=== PATIENT | male | born 1950 ===

== ENCOUNTER 2018-12-02 20:47 | Inpatient (IN) | payer OTHER ==
[~2018-12-02] VITALS: Ht 167.6 cm; Wt 74.8 kg
[2018-12-02 22:44] VITALS: PULSE 77
[2018-12-02 23:06] VITALS: BP 169/85; RESP 18
[2018-12-03] VITALS (10 sets, daily range): BP systolic 110–133; BP diastolic 64–87; PULSE 63–76; RESP 18–22
[2018-12-03] MEDS: SOD CHLORIDE 0.45% 1,000 ML IV SCH ×3 (00:38→16:00)
[2018-12-03] MEDS ORDERED: hydrALAzine 20 MG INJ IV PRN (01:00)
[2018-12-03] MEDS ORDERED: DOCUSATE SODIUM 100 MG CAP PO PRN (01:00)
[2018-12-03] MEDS ORDERED: ACETAMINOPHEN 325 MG TAB PO PRN (01:00)
[2018-12-03] MEDS ORDERED: NACL 0.9% 3 ML SYG IV SCH (01:00)
[2018-12-03] MEDS ORDERED: HYDROCODONE/APAP (5/325) TAB PO PRN (01:00)
[2018-12-03] MEDS ORDERED: morphine 2 MG INJ IV PRN (01:00)
[2018-12-03] MEDS ORDERED: ALBUTEROL/IPRATROPIUM (NEB) 3 ML AMP HHN PRN (01:00)
[2018-12-03] MEDS ORDERED: MAGNESIUM HYDROXIDE 30ML CUP PO PRN (01:00)
[2018-12-03] MEDS ORDERED: ONDANSETRON 4 MG INJ IV PRN (01:00)
[2018-12-03] MEDS ORDERED: LORAZEPAM 2 MG INJ IV PRN (01:00)
[2018-12-03] MEDS ORDERED: NITROGLYCERIN (SL) 0.4 MG TAB SL PRN (01:00)
[2018-12-03] MEDS ORDERED: DEXTROSE 50% 50 ML SYRINGE IV PRN ×2 (01:15)
[2018-12-03] MEDS ORDERED: GLUCOSE GEL 15 GRAM TUBE BUCCAL PRN (01:15)
[2018-12-03] MEDS ORDERED: GLUCAGON 1 MG INJ IM PRN (01:15)
[2018-12-03] MEDS ORDERED: GLUCOSE GEL 15 GRAM TUBE PO PRN ×2 (01:15)
[2018-12-03] MEDS: INSULIN ASPART [NOVOLOG] 3 ML PEN SC SCH ×6 (01:56→21:40)
[2018-12-03] MEDS ORDERED: ACCU-CHEK XX SCH ×2 (02:00→20:00)
--- NOTE | 2018-12-03 03:38 | HP ---
Date/Time of Note Date/Time of Note DATE: 12/03/18 TIME: 03:32 Assessment/Plan VTE Prophylaxis SCD applied (from Ns): No SCD contraindicated: other Pharmacological prophylaxis: heparin Lines/Catheters Urinary Cath still in place: No Assessment/Plan Hospital Course Assessment and plan: 68-year-old male past medical history of hypertension, BPH, positive smoking history, diabetes, high cholesterol, who was transferred from outside hospital due to facial numbness symptoms, along with slurred speech-rule out stroke versus TIA. 1. Facial numbness slurred speech: Again rule out stroke versus TIA. Preliminary work-up negative -Check MRI of the brain, carotid Doppler studies, echocardiogram. Follow-up TSH, A1c, lipid panel -Continue high-dose aspirin, add statin. Do neuro checks and allow for permissive hypertension at this time, get PT, OT, speech therapy consult 2. Diabetes: Follow-up A1c continue sliding scale insulin 3. Hypertension: Again allow for permissive hypertension at this time 4. High cholesterol: Follow-up lipid panel continue statin 5. Smoking history: Counseled on cessation, consider nicotine patch if patient agrees Results 24hrs Laboratory Tests Test 12/03/18 01:01 Bedside Glucose 143 HPI/ROS Admit Date/Time Admit Date/Time Dec 02, 2018 at 22:36 Hx of Present Illness 68-year-old male past medical history of hypertension, BPH, positive smoking history, diabetes, high cholesterol, who was transferred from outside hospital due to facial numbness symptoms, along with slurred speech. According to the transfer paperwork the symptoms occurred 12 hours prior to arrival to the outside hospital and lasted for 3 hours and resolved patient denied chest pain shortness of breath no upper lower GI bleeding no nausea vomiting no fevers or chills or diarrhea constipation. No prior history of any strokes. Patient had a head CT at the outside hospital that did not show any acute findings, chest x- ray was also negative for any acute findings. PMH/Family/Social Past Medical History Medications Current Medications IV Flush (NS 3 ml) 3 ml PER PROTOCOL IV ; Start 12/03/18 at 01:00 Ondansetron HCl (Zofran Inj) 4 mg Q6H PRN IV NAUSEA/VOMITING; Start 12/03/18 at 01:00 Acetaminophen (Tylenol Tab) 650 mg Q6H PRN PO .PAIN 1-3 OR TEMP; Start 12/03/18 at 01:00 Acetaminophen/ Hydrocodone Bitart ([place] (5/325)) 1 tab Q6H PRN PO .MOD PAIN 4- 6; Start 12/03/18 at 01:00 Morphine Sulfate (morphine) 2 mg Q4H PRN IV .SEVERE PAIN 7-10; Start 12/03/18 at 01:00 Docusate Sodium (Colace) 100 mg Q12H PRN PO .CONSTIPATION; Start 12/03/18 at 01:00 Magnesium Hydroxide (Milk Of Mag) 30 ml DAILY PRN PO .CONSTIPATION; Start 12/03/18 at 01:00 Pantoprazole (Protonix Tab) 40 mg DAILY@06 PO ; Start 12/03/18 at 06:00 Heparin Sodium (Porcine) (Heparin (5000 Units/1ml)) 5,000 unit Q12 SC ; Start 12/03/18 at 09:00 Sodium Chloride 1,000 ml @ 75 mls/hr [id number] IV Last administered on 12/03/18at 00:38; Admin Dose 75 MLS/HR; Start 12/03/18 at 00:38 Lorazepam (Ativan) 0.5 mg Q6H PRN IV ANXIETY; Start 12/03/18 at 01:00 Albuterol/ Ipratropium (Duoneb) 3 ml Q4H RESP THERAPY PRN HHN SHORTNESS OF BREATH; Start 12/03/18 at 01:00 Hydralazine HCl (Apresoline) 10 mg Q6H PRN IV ELEVATED BLOOD PRESSURE; Start 12/03/18 at 01:00 Nitroglycerin (Nitroglycerin (Sl Tab) 0.4 Mg) 1 tab Q5M PRN SL ANGINA; Start 12/03/18 at 01:00 Aspirin (Ecotrin) 325 mg DAILY PO ; Start 12/03/18 at 09:00 Insulin Aspart (Novolog Insulin Pen) NOVOLOG *MILD* ALGORI... Q4 SC Last adm inistered on 12/03/18at 01:56; Admin Dose 1 UNIT; Start 12/03/18 at 01:00 Miscellaneous Information 1 ea NOTE XX ; Start 12/03/18 at 01:15 Glucose (Glutose) 15 gm Q15M PRN PO DECREASED GLUCOSE; Start 12/03/18 at 01:15 Glucose (Glutose) 22.5 gm Q15M PRN PO DECREASED GLUCOSE; Start 12/03/18 at 01:15 Dextrose (D50w Syringe) 25 ml Q15M PRN IV DECREASED GLUCOSE; Start 12/03/18 at 01:15 Dextrose (D50w Syringe) 50 ml Q15M PRN IV DECREASED GLUCOSE; Start 12/03/18 at 01:15 Glucagon (Glucagen) 1 mg Q15M PRN IM DECREASED GLUCOSE; Start 12/03/18 at 01:15 Glucose (Glutose) 15 gm Q15M PRN BUCCAL DECREASED GLUCOSE; Start 12/03/18 at 01:15 Coded Allergies: No Known Allergy (Unverified , 12/03/18) Social History Alcohol Use: occasionally Smoking Status: Current every day smoker Drug Use: none Exam/Review of Systems Vital Signs Vitals Vital Signs Date Temp Pulse Resp B/P (MAP) Pulse Ox O2 O2 Flow FiO2 Time Delivery Rate 12/03/18 70 00:00 12/02/18 98.5 18 169/85 98 Room Air 23:06 (113) Exam Exam Gen: Lying in bed, no acute distress Head: Atraumatic. Eyes: Normal Conjunctiva. ENT: Normal External Ears, Nose and Mouth. Neck: Full range of motion. No meningismus. Resp: Clear to auscultation bilaterally. Cardio: Regular rate and rhythm. Abd: Soft, nondistended, normal bowel sounds, non tender. Ext: No lower extremity edema bilaterally Neuro: No focal deficits YAKELIN OLSON Dec 03, 2018 03:38
[2018-12-03] MEDS ORDERED: ATORVASTATIN 80 MG TAB PO ONE (04:00)
[2018-12-03] MEDS: PANTOPRAZOLE (EC) 40 MG TAB PO SCH (06:25)
[2018-12-03] MEDS: ASPIRIN (EC) 325 MG TAB PO SCH (09:23)
[2018-12-03] MEDS: HEPARIN 5,000 UNIT/1 ML VIAL SC SCH ×2 (09:34→21:40)
--- NOTE | 2018-12-03 15:18 | PN ---
Date/Time of Note Date/Time of Note DATE: 12/03/18 TIME: 15:17 Assessment/Plan VTE Prophylaxis Risk score (from Ns)>0 risk: 2 SCD applied (from [facility] [place] Yes SCD contraindicated: low risk/ambulating Pharmacological prophylaxis: heparin Pharm contraindication: low risk/ambulating Lines/Catheters IV C[facility]ter Type (from [facility]): Peripheral IV Urinary Cath still in place: No Assessment/Plan Problems: (1) TIA (transient ischemic attack) Status: Acute Comment: MRI of brain is pending at this time. Based on that we will be using antiplatelet agents. (2) Benign prostatic hyperplasia Status: Chronic Comment: Appropriate treatment as indicated Qualifiers: Lower urinary tract symptom presence: symptoms present Lower urinary tract symptom detail: urinary hesitancy Qualified Codes: N40.1 - Benign prostatic hyperplasia with lower urinary tract symptoms; R39.11 - Hesitancy of micturition (3) Essential hypertension Status: Chronic Comment: Adequate control (4) Hyperlipidemia Status: Chronic Comment: Full dose statin therapy Qualifiers: Hyperlipidemia type: pure hypercholesterolemia Qualified Codes: E78.00 - Pure hypercholesterolemia, unspecified (5) Diabetes mellitus type 2 in nonobese Status: Chronic Comment: Follow carefully (6) Smoker Status: Chronic Comment: Counseled on cessation Results 24hrs Laboratory Tests Test 12/03/18 01:01 12/03/18 04:36 12/03/18 04:37 12/03/18 06:26 Bedside Glucose 143 153 Free Thyroxine 1.16 Prothrombin Time 12.8 Prothrombin Time Ratio 1.0 INR International 0.95 Normalized Ratio Activated 35.4 H Partial Thromboplast Time Test 12/03/18 08:33 12/03/18 12:39 Bedside Glucose 189 252 H Subjective 24 Hr Interval Summary Free Text/Dictation Patient reports no new symptoms since transfer to this facility Constitutional: no complaints Cardiovascular: no complaints Gastrointestinal: no complaints Genitourinary: no complaints Exam/Review of Systems Exam Vitals Vital Signs Date Temp Pulse Resp B/P (MAP) Pulse Ox O2 O2 Flow FiO2 Time Delivery Rate 12/03/18 73 12:57 12/03/18 98.0 22 110/64 96 Room Air 12:39 (79) Constitutional: alert, oriented Respiratory: clear to auscultation, normal air movement Cardiovascular: regular rate and rhythm, nl pulses Results Results 24hrs Laboratory Tests Test 12/03/18 01:01 12/03/18 04:36 12/03/18 04:37 12/03/18 06:26 Bedside Glucose 143 153 Free Thyroxine 1.16 Prothrombin Time 12.8 Prothrombin Time Ratio 1.0 INR International 0.95 Normalized Ratio Activated 35.4 H Partial Thromboplast Time Test 12/03/18 08:33 12/03/18 12:39 Bedside Glucose 189 252 H Medications Medication Current Medications IV Flush (NS 3 ml) 3 ml PER PROTOCOL IV ; Start 12/03/18 at 01:00 Ondansetron HCl (Zofran Inj) 4 mg Q6H PRN IV NAUSEA/VOMITING; Start 12/03/18 at 01:00 Acetaminophen (Tylenol Tab) 650 mg Q6H PRN PO .PAIN 1-3 OR TEMP; Start 12/03/18 at 01:00 Acetaminophen/ Hydrocodone Bitart ([place] (5/325)) 1 tab Q6H PRN PO .MOD PAIN 4- 6; Start 12/03/18 at 01:00 Morphine Sulfate (morphine) 2 mg Q4H PRN IV .SEVERE PAIN 7-10; Start 12/03/18 at 01:00 Docusate Sodium (Colace) 100 mg Q12H PRN PO .CONSTIPATION; Start 12/03/18 at 01:00 Magnesium Hydroxide (Milk Of Mag) 30 ml DAILY PRN PO .CONSTIPATION; Start 12/03/18 at 01:00 Pantoprazole (Protonix Tab) 40 mg DAILY@06 PO Last administered on 12/03/18at 06:25; Admin Dose 40 MG; Start 12/03/18 at 06:00 Heparin Sodium (Porcine) (Heparin (5000 Units/1ml)) 5,000 unit Q12 SC Last administered on 12/03/18at 09:34; Admin Dose 5,000 UNIT; Start 12/03/18 at 09:00 Sodium Chloride 1,000 ml @ 75 mls/hr [id number] IV Last administered on 12/03/18at 00:38; Admin Dose 75 MLS/HR; Start 12/03/18 at 00:38 Lorazepam (Ativan) 0.5 mg Q6H PRN IV ANXIETY; Start 12/03/18 at 01:00 Albuterol/ Ipratropium (Duoneb) 3 ml Q4H RESP THERAPY PRN HHN SHORTNESS OF BREATH; Start 12/03/18 at 01:00 Hydralazine HCl (Apresoline) 10 mg Q6H PRN IV ELEVATED BLOOD PRESSURE; Start 12/03/18 at 01:00 Nitroglycerin (Nitroglycerin (Sl Tab) 0.4 Mg) 1 tab Q5M PRN SL ANGINA; Start 12/03/18 at 01:00 Aspirin (Ecotrin) 325 mg DAILY PO Last administered on 12/03/18at 09:23; Admin Dose 325 MG; Start 12/03/18 at 09:00 Insulin Aspart (Novolog Insulin Pen) NOVOLOG *MILD* ALGORI... Q4 SC Last administered on 12/03/18at 12:46; Admin Dose 3 UNIT; Start 12/03/18 at 01:00 Miscellaneous Information 1 ea NOTE XX ; Start 12/03/18 at 01:15 Glucose (Glutose) 15 gm Q15M PRN PO DECREASED GLUCOSE; Start 12/03/18 at 01:15 Glucose (Glutose) 22.5 gm Q15M PRN PO DECREASED GLUCOSE; Start 12/03/18 at 01:15 Dextrose (D50w Syringe) 25 ml Q15M PRN IV DECREASED GLUCOSE; Start 12/03/18 at 01:15 Dextrose (D50w Syringe) 50 ml Q15M PRN IV DECREASED GLUCOSE; Start 12/03/18 at 01:15 Glucagon (Glucagen) 1 mg Q15M PRN IM DECREASED GLUCOSE; Start 12/03/18 at 01:15 Glucose (Glutose) 15 gm Q15M PRN BUCCAL DECREASED GLUCOSE; Start 12/03/18 at 01:15 Diagnostic Test (Pha) (Accu-Chek) 1 ea AC MEALS XX ; Start 12/03/18 at 17:30 Diagnostic Test (Pha) (Accu-Chek) 1 ea 2 HOURS AFTER MEALS XX ; Start 12/03/18 at 20:00; Status SANTHOSH LAWSON MD Dec 03, 2018 15:18
--- NOTE | 2018-12-03 15:30 | RADRPT ---
Echocardiogram Report Patient Name: DIANE HERNDONPatient ID: [id number] : 1950 (68y 3m)Study Date: 12/03/2018 8:14:23 AM Gender: Federicocession #: [id number] Tech: FEDERICO Location: [facility] Ref.Physician: YAKELIN OLSON Height(Cm): 168 BSA: 1.86Weight(Kg): 74.4 Quality: AdequateOrder Physician: YAKELIN OLSON Account #: Procedures: Echocardiographic Report: Transthoracic echocardiogram with complete 2D, M-Mode, and doppler examination. Indications: Transient Ischemic Attack. Measurements: 2D/M Mode Doppler Measurement Value Normal Range Measurement Value Normal Range LVIDd 2D 3.9 [ 4.2 - 5.8 ] cm AV Peak Jim 1.0 [ 100.0 - 170.0 ] cm/se c LVIDs 2D 2.6 [ 2.5 - 4.0 ] cm AV Peak PG 4.0 [ 2.0 - 9.0 ] mmHg LVPWd 2D 1.0 [ 0.6 - 1.0 ] cm LVOT Peak Jim 0.8 [ 70.0 - 110.0 ] cm/sec IVSd 2D 1.1 [ 0.6 - 1.0 ] cm LVOT Peak PG 3.0 [ 2.0 - 6.0 ] mmHg AoR Diam 2D 4.1 [ 2.6 - 3.4 ] cm MV E Peak Jim 0.6 [ 60.0 - 130.0 ] cm/sec EF 2D 64.1 [ 52.0 - 72.0 ] percent MV A Peak Jim 0.5 [ 100.0 - 120.0 ] cm/se c LA Dimen 2D 3.5 [ 3.0 - 4.0 ] cm MV E/A 1.3 [ 0.8 - 1.5 ] ratio MV PHT 95.0 [ 20.0 - 100.0 ] msec MV Decel Time 324 [ 104 - 258 ] msec MV Decel [place] 2 Lat E` Jim 0.1 [ 10.0 - 15.0 ] cm/sec Lateral E/E` 6.0 [ 1.0 - 2.0 ] ratio Med E` Jim 0.1 cm/sec MV E/A 1.3 [ 0.8 - 1.5 ] ratio MVA PHT 2.3 [ 2.0 - 4.0 ] cm2 TR Peak Jim 2.3 [ 100.0 - 280.0 ] cm/se c TR Peak PG 22.0 mmHg PV Peak Jim 0.9 [ 40.0 - 80.0 ] cm/sec PV Peak PG 3.0 mmHg RVSP 25.0 [ 10.0 - 36.0 ] mmHg RA Pressure 3.0 mmHg Findings: Left Ventricle: Normal left ventricular systolic function. Normal left ventricular cavity size. Normal left ventricular wall thickness. Ejection fraction is visually estimated at 55-60 %. Tissue Doppler/Mitral Doppler indices are within normal limits. Right Ventricle: Normal right ventricular size. Normal right ventricular systolic function. Left Atrium: The left atrium is normal in size. Right Atrium: The right atrium is normal in size. Atrial Septum: Normal atrial septum. Mitral Valve: Normal appearance and function of the mitral valve with trace physiologic regurgitation. Aortic Valve: No significant aortic stenosis or insufficiency. Normal trileaflet aortic valve structure. Tricuspid Valve: Normal appearance and function of the tricuspid valve with trace physiologic regurgitation. The estimated Peak RVSP is 25 mmHg. Pulmonic Valve: Normal pulmonic valve appearance. No evidence of pulmonic regurgitation. Pericardium: Normal pericardium with no significant pericardial effusion. Aorta: Sinus of valsalva is mildly dilated. Sinus of valsalva 4.10 cm. Ascending aorta is normal. IVC: Normal size and normal respiratory collapse consistent with normal right atrial pressure. Pulmonary Artery: Normal pulmonary artery size. Conclusions: Normal left ventricular systolic function. Normal left ventricular cavity size. Normal left ventricular wall thickness. Ejection fraction is visually estimated at 55-60 %. Tissue Doppler/Mitral Doppler indices are within normal limits. Sinus of valsalva is mildly dilated. Sinus of valsalva 4.10 cm. Ascending aorta is normal. Electronically Signed By: Kosta López 2018-12-03 15:29:53 PDT
[2018-12-03] MEDS: ACCU-CHEK XX SCH (17:30)
[2018-12-03] MEDS: LINAGLIPTIN 5 MG TABLET PO SCH (18:29)
[2018-12-03] MEDS ORDERED: ALFUZOSIN (SR) 10 MG TAB PO SCH (21:00)
[2018-12-04] VITALS: BP 130/72; PULSE 56; PULSE 72; RESP 18
[2018-12-04] MEDS: INSULIN ASPART [NOVOLOG] 3 ML PEN SC SCH ×3 (01:00→08:14)
[2018-12-04 04:00] VITALS: BP 131/73; PULSE 58; PULSE 70; RESP 18
[2018-12-04] MEDS: PANTOPRAZOLE (EC) 40 MG TAB PO SCH (05:57)
[2018-12-04] MEDS: SOD CHLORIDE 0.45% 1,000 ML IV SCH (06:04)
[2018-12-04] MEDS: ACCU-CHEK XX SCH (07:00)
[2018-12-04 07:44] VITALS: BP 103/60; PULSE 65; RESP 22
[2018-12-04 08:00] VITALS: PULSE 82
[2018-12-04] MEDS: ASPIRIN (EC) 325 MG TAB PO SCH (08:37)
[2018-12-04] MEDS: LINAGLIPTIN 5 MG TABLET PO SCH (08:38)
--- NOTE | 2018-12-04 08:41 | DS ---
Date/Time of Note Date/Time of Note DATE: 12/04/18 TIME: 08:37 Discharge Summary Admission/Discharge Info Admit Date/Time Dec 02, 2018 at 22:36 Discharge Date/Time December 04, 2018 Discharge Diagnosis TIA; diabetes mellitus type 2; essential hypertension; benign prostatic hypertrophy; hyperlipidemia; smoker Patient Condition: Good Procedures Echocardiogram Conclusions: Normal left ventricular systolic function. Normal left ventricular cavity size. Normal left ventricular wall thickness. Ejection fraction is visually estimated at 55-60 %. Tissue Doppler/Mitral Doppler indices are within normal limits. Sinus of valsalva is mildly dilated. Sinus of valsalva 4.10 cm. Ascending aorta is normal. MRI scan brain IMPRESSION: 1. No acute intracranial pathology. 2. Mild volume loss with very mild chronic microvascular ischemic changes. Carotid Doppler study IMPRESSION: No sonographic evidence of a hemodynamically significant stenosis or occlusion in the bilateral internal carotid arteries. Hx of Present Illness Hx of Present Illness 68-year-old male past medical history of hypertension, BPH, positive smoking history, diabetes, high cholesterol, who was transferred from outside hospital due to facial numbness symptoms, along with slurred speech. According to the transfer paperwork the symptoms occurred 12 hours prior to arrival to the outside hospital and lasted for 3 hours and resolved patient denied chest pain shortness of breath no upper lower GI bleeding no nausea vomiting no fevers or chills or diarrhea constipation. No prior history of any strokes. Patient had a head CT at the outside hospital that did not show any acute findings, chest x- ray was also negative for any acute findings. Hospital Course Charming 5-year-old Arabic gentleman admitted for the above. Ne urologically he was actually at baseline by the time he arrived at our facility. He was stable during the course evaluation had negative echo, negative carotid Doppler, negative MRI scan of brain. He is done well with observation and physical therapy has seen him. At this time he should go out on antiplatelet therapy. Follow-up Plan Primary care physician in 1 week. Primary Care Provider Not On Staff Doctor Time spent on discharge: > 30 minutes Pending Labs Laboratory Tests Test 12/03/18 12:39 12/03/18 17:40 12/03/18 21:15 12/04/18 01:05 Bedside 252 177 249 134 Glucose mg/dL (70-220) mg/dL (70-220) mg/dL (70-220) mg/dL (70-220) Test 12/04/18 05:05 12/04/18 05:58 12/04/18 08:02 White Blood 5.8 Count 10^3/ul (4.8-10 .8) Red Blood 4.72 Count 10^6/ul (4.70-6 .10) Hemoglobin 13.5 g/dl (14.0-18.0 ) Hematocrit 40.5 % (42.0-52.0) Mean 85.8 Corpuscular fl (82.0-101.0) Volume Mean 28.6 Corpuscular pg (29.0-33.0) Hemoglobin Mean 33.3 Corpuscular g/dl (32.0-37.0 Hemoglobin Conc ) ent Red Cell 12.6 Distribution % (11.5-14.5) Width Platelet Count 277 10^3/UL (140-41 5) Mean Platelet 10.2 Volume fl (7.4-10.4) Immature 0.300 Granulocytes % % (0.001-0.429) Neutrophils % 53.0 % (39.0-77.0) Lymphocytes % 35.8 % (15.0-51.0) Monocytes % 7.6 % (0.0-11.0) Eosinophils % 2.6 % (0.0-7.0) Basophils % 0.7 % (0.0-2.0) Nucleated Red 0.0 Blood Cells % /100WBC (0.0-0. 0) Immature 0.020 Granulocytes # 10^3/ul (0.0-0. 031) Neutrophils # 3.1 10^3/ul (1.6-7. 5) Lymphocytes # 2.1 10^3/ul (0.8-2. 9) Monocytes # 0.4 10^3/ul (0.3-0. 9) Eosinophils # 0.2 10^3/ul (0.0-0. 5) Basophils # 0.0 10^3/ul (0.0-0. 1) Nucleated Red 0.0 Blood Cells # 10^3/ul (0.0-0. 0) Sodium Level 136 mmol/L (135-144 ) Potassium 4.4 Level mmol/L (3.5-5.1 ) Chloride Level 104 mmol/L (97-110) Carbon Dioxide 26 Level mmol/L (21-31) Anion Gap 6 (5-13) Blood Urea 16 mg/dl (7-20) Nitrogen Creatinine 0.90 mg/dl (0.61-1.2 4) Est Glomerular > 60 Filtrat mL/min (>60) Rate mL/min Glucose Level 135 mg/dl (70-220) Calcium Level 9.0 mg/dl (8.4-10.2 ) Phosphorus 4.2 Level mg/dl (2.5-4.9) Magnesium 1.8 Level mg/dl (1.7-2.5) Triglycerides 63 Level mg/dl (0-149) Cholesterol 121 Level mg/dl (100-200) LDL 68 mg/dl Cholesterol, Calculated HDL 40 Cholesterol mg/dl (31-75) Cholesterol/HDL 3.0 RATIO Ratio Thyroid 1.230 Stimulating MIU/L (0.465-4. Hormone (TSH) 680) Bedside 155 250 Glucose mg/dL (70-220) mg/dL (70-220) SANTHOSH HERRERA MD Dec 04, 2018 08:41
--- NOTE | 2018-12-04 08:41 | PDOCDIS ---
Discharge Instructions DIAGNOSIS Discharge Diagnosis TIA; diabetes mellitus type 2; essential hypertension; benign prostatic hypertrophy; hyperlipidemia; smoker CONDITION [id number] Patient Condition: [id number] Good HOME CARE INSTRUCTIONS: [id number] Special Diet: [id number] Diabetic diet ACTIVITY: [id number] Activity Restrictions: [id number] No Restrictions FOLLOW UP/APPOINTMENTS Follow-up Plan Primary care physician in 1 week. SANTHOSH HERRERA MD Dec 04, 2018 08:41
[2018-12-04] MEDS ORDERED: ATOR20TA38 PO (08:45)
[2018-12-04] MEDS ORDERED: GLYB5TAB3 PO (08:45)
[2018-12-04] MEDS ORDERED: ASPI325T32 PO (08:45)
[2018-12-04] MEDS ORDERED: ALFU10TA2 PO (08:45)
[2018-12-04] MEDS ORDERED: METF100010 PO (08:45)
[2018-12-04] MEDS: HEPARIN 5,000 UNIT/1 ML VIAL SC SCH (09:00)
== END 2018-12-04 10:52 | disposition home or self-care (01) | DRG 69 ==
LOC: 6WM 22:36
PROVIDERS: ADMIT Internal Medicine; ATTEND Internal Medicine
DX: G45.9 Transient cerebral ischemic attack, unspecified (principal); E11.8 Type 2 diabetes mellitus with unspecified complications; I10 Essential (primary) hypertension; E78.00 Pure hypercholesterolemia, unspecified; N40.0 Benign prostatic hyperplasia without lower urinary tract symptoms; F17.200 Nicotine dependence, unspecified, uncomplicated
CPT/HCPCS: 70551; 80048; 80061; 82962; 83036; 83735; 84100; 84439; 84443; 85025; 85610; 85730; 87081; 92610; 93306; 93880; 97161; J1644; J1815